=== PATIENT | female | born 1980 | race Caucasian/White ===

== ENCOUNTER 2018-04-26 18:35 | Emergency (ER) | payer OTHER ==
[~2018-04-26] VITALS: Ht 162.6 cm; Wt 91.2 kg
[~2018-04-26 18:35] MED LIST: LANTUS; SEE MED SHEET
[2018-04-27] MEDS ORDERED: TETANUS, DIPHTHERIA, PERTUSSIS VAC/PF 0.5ML (>7YR OLD) IM ONE
[2018-04-27] MEDS ORDERED: BACITRACIN ZINC OINT UDPKT TOP ONE
[2018-04-27 03:14] VITALS: BP 108/93
== END 2018-04-27 03:17 | disposition home or self-care (01) ==
LOC: ER 18:35
DX: M79.644 Pain in right finger(s) (principal); M79.89 Other specified soft tissue disorders; E11.9 Type 2 diabetes mellitus without complications; I10 Essential (primary) hypertension; F17.200 Nicotine dependence, unspecified, uncomplicated; Z98.890 Other specified postprocedural states
CPT/HCPCS: 29130; 73130; 81025; 82962; 90471; 90715; 99284

== ENCOUNTER 2018-09-06 20:22 | Emergency (ER) | payer OTHER ==
[~2018-09-06] VITALS: Ht 162.6 cm; Wt 91.0 kg
[2018-09-07] MEDS ORDERED: KETOROLAC 30MG/ML VIAL IM ONE (04:00)
[2018-09-07 04:12] VITALS: BP 152/80
== END 2018-09-07 04:15 | disposition home or self-care (01) ==
LOC: ER 20:22
DX: K08.89 Other specified disorders of teeth and supporting structures (principal); E11.9 Type 2 diabetes mellitus without complications; I10 Essential (primary) hypertension; Z98.51 Tubal ligation status; Z98.890 Other specified postprocedural states
CPT/HCPCS: 81025; 96372; 99283; J1885

== ENCOUNTER 2020-06-06 16:14 | Emergency (ER) | payer OTHER ==
[~2020-06-06] VITALS: Ht 162.6 cm; Wt 91.0 kg
[~2020-06-06 16:14] MED LIST changes: +BALANCED SALT IRRIG SOLN 15ML ONE; +BUPIVACAINE HCL/PF 0.75% (7.5MG/ML) 10ML ONE; +CIPROFLOXACIN 0.3% OPHTH SOLN 2.5ML ONE; +GLIP10TA10 PO; +INSU100I28 SQ; -LANTUS; +LIDOCAINE HCL 2%/EPINEPHRINE 1:100,000 20 ML VIAL INFIL ONE; +LIP40 MT; +LOSA50TA41 MT; +METF-416 MT; +PREDNISOLONE ACETATE 1% OPHTH DROPS 5ML ONE; -SEE MED SHEET; +TETRACAINE 0.5% OPHTH DROPS 4ML ONE
[2020-06-06 18:21] LABS: BASOPHILS % 0.8 % (0.0-2.0); EOSINOPHILS % 3.1 % (0.0-5.0); HEMATOCRIT. 31.4 % (36.0-48.0); HEMOGLOBIN. 10.6 g/dL (12.0-16.0); LYMPHOCYTES % 26.5 % (20.0-50.0); MEAN CORPUSCULAR HEMOGLOBIN 29.9 pg (28.0-32.0); MEAN CORPUSCULAR VOLUME 88.4 fL (81.0-99.0); MEAN PLATELET VOLUME 8.3 fl (7.4-10.4); MONOCYTES % 4.8 % (2.0-8.0); NEUTROPHILS % 64.8 % (40.0-76.0); PLATELET 428 x1000/uL (130-400); RED BLOOD CELL COUNT 3.55 mill/uL (4.2-5.4); RED CELL DISTRIBUTION WIDTH 14.8 % (11.6-14.6)
[2020-06-06 18:29] LABS: CHLORIDE 111 mEq/L (98-107); INR 0.9; PROTHROMBIN TIME 9.6 sec (9.6-11.0)
[2020-06-06] MEDS ORDERED: CEFAZOLIN 1000MG PREMIX 50 ML IV ONE (18:30)
[2020-06-06 18:43] LABS: HCG SCREEN NEGATIVE
[2020-06-06] MEDS ORDERED: PROPOFOL 200MG/20ML VIAL IV ONE (18:59)
[2020-06-06] MEDS ORDERED: TRIAMCINOLONE ACETONIDE 40MG/ML 1ML VIAL ONE (20:01)
[2020-06-06] MEDS ORDERED: FENTANYL CITRATE/PF 50MCG/ML 2ML VIAL ONE (20:07)
[2020-06-06] MEDS ORDERED: ONDANSETRON HCL 4MG/2ML INJ IV PRN (20:30)
[2020-06-06] MEDS: LABETALOL 5MG/ML SYR 20 MG/4 ML SYRINGE IV PRN ×2 (20:53→21:39)
[2020-06-06] MEDS ORDERED: HYDROMORPHONE HCL/PF 2MG/ML (OR) ONE (21:10)
[2020-06-06] MEDS: HYDROMORPHONE HCL/PF 2MG/ML CPJ IV PRN ×3 (21:13→21:43)
[2020-06-06 21:43] VITALS: BP 160/90
== END 2020-06-07 04:37 | disposition home or self-care (01) ==
LOC: ER 16:14 → CANBEDREQ 22:16 → ER 06-07 04:37
DX: H40.9 Unspecified glaucoma (principal); E11.9 Type 2 diabetes mellitus without complications; E78.00 Pure hypercholesterolemia, unspecified; I10 Essential (primary) hypertension; Z98.890 Other specified postprocedural states; Z98.51 Tubal ligation status; Z79.899 Other long term (current) drug therapy
CPT/HCPCS: 36415; 67120; 68200; 80053; 84703; 85025; 85610; 87070; 87075; 87205; 87426; 88300; 93005; 96365; 96375; 99284; J0690; J1170; J2704; J3010; J3301; J3490; Z7610